=== PATIENT | male | born 1960 | race Caucasian/White ===

== ENCOUNTER 2020-08-29 14:11 | Observation (INO) | payer BC ==
[~2020-08-29] VITALS: Ht 182.9 cm; Wt 127.0 kg
[2020-08-29 14:17] VITALS: BP 166/73
[2020-08-29 14:30] LABS: ABSOLUTE BASOPHILS 0.1 thou/uL (0.0-0.2); ABSOLUTE EOSINOPHILS 0.1 thou/uL (0.0-0.7); ABSOLUTE LYMPHOCYTES 2.4 thou/uL (0.8-5.3); ABSOLUTE MONOCYTES 0.6 thou/uL (0.0-1.2); ABSOLUTE NEUTROPHILS 3.6 thou/uL (1.6-8.1); BASOPHILS 1.3 %; EOSINOPHILS 2.1 %; HEMATOCRIT 46.7 % (42.0-52.0); HEMOGLOBIN 15.8 gm/dL (14.0-18.0); LYMPHOCYTES 35.4 %; MCHC 33.8 g/dL (28.0-37.0); MCV 91.6 fL (80.0-100.0); MONOCYTES 8.5 %; MPV 8.5 fl. (7.2-11.1); NUCLEATED RBCS 0 /100WBC; PLATELET COUNT* 186 thou/uL (150-400); POLYS 52.7 %; WBC 6.8 thou/uL (4.0-11.0)
[2020-08-29 14:41] LABS: CALCIUM 9.3 mg/dL (8.5-10.1); CREATININE 1.5 mg/dL (0.6-1.3); POTASSIUM 3.5 mmol/L (3.5-5.1)
[2020-08-29 14:52] LABS: ALBUMIN 3.7 g/dL (3.4-5.0); MAGNESIUM 1.7 mg/dL (1.8-2.4); TOTAL BILIRUBIN 0.7 mg/dL (<0.1-1.0); TOTAL PROTEIN 7.9 g/dL (6.4-8.2)
--- NOTE | 2020-08-29 17:14 | EKG ---
[place] [address] ELECTROCARDIOGRAM REPORT Name: ANT MARRERO Room: [place] [address] [facility]#: [id number] Admission: 08/29/20 Attend Phys: Jeff Moreno, Discharge: Date of : 56 Date of Service: 08/29/20 1418 Report #: [id number] THIS REPORT FOR: //name// [facility] ED Test Date: 2020-08-29 Test Time: 14:18:16 Pat Name: ANT MARRERO Department: Room: [facility] Gender: M Performing Arts Technicians: BISI : 1960 Requested By: Edwardo Vasquez Order Number: [id number] MD: Jose Gomes Measurements Intervals [place] Rate: 82 P: 56 CA: 168 QRS: -58 QRSD: 101 T: 48 QT: 367 QTc: 429 Interpretive Statements Sinus rhythm Possible old inferior infarct Anterior infarct, old No previous ECG available for comparison Electronically Signed On 08-29-2020 17:14:48 CDT by Jose Gomes [email or web address] <ELECTRONICALLY SIGNED> By: Ivon Gomes MD, [facility] 08/29/20 1714 1418 1418 F. Jose Gomes MD, [facility] /EPI
[2020-08-29] MEDS ORDERED: VITAMIN D3 COM1 EACH PO (17:39)
[2020-08-29] MEDS ORDERED: METFORMIN HCL500 M3 PO (17:39)
[2020-08-29] MEDS ORDERED: XANAX1 MG PO (17:39)
[2020-08-29] MEDS ORDERED: JARDIANCE10 MG PO (17:40)
[2020-08-29] MEDS ORDERED: LOPRESSOR50 MG PO (17:40)
[2020-08-29] MEDS ORDERED: ASA81BEC PO (17:40)
[2020-08-29] MEDS ORDERED: AMARYL4 MG PO (17:40)
[2020-08-29] MEDS ORDERED: LISINOPRIL-HCT1 EAC2 PO (17:41)
[2020-08-29] MEDS ORDERED: OMEPRAZOLE 20 M20 M1 PO (17:41)
[2020-08-29] MEDS ORDERED: LIPITOR 20 MG T20 M1 PO (17:41)
[2020-08-29 18:15] VITALS: BP 143/66
[2020-08-29 18:30] VITALS: BP 130/63
[2020-08-29 20:17] VITALS: BP 106/50
--- NOTE | 2020-08-29 20:22 | NUR ---
PT ARRIVED TO ROOM 224 AT 1815. PT IS ALERT, ORIENTED X 4 AND COOPERATIVE WITH STAFF. NO C/O OR INDICATION OF PAIN OR DISTRESS. PT ORIENTED TO ROOM AND USE OF CALL LIGHT. NEWS LIBRARY DIRECTOR TO COMPLETE ADMISSION PROCESS/CHARTING
[2020-08-30] VITALS: BP 106/50
[2020-08-30 04:00] VITALS: BP 137/66
[2020-08-30 05:07] LABS: GLYCOHEMOGLOBIN (HGB A1C) 7.8 % (4.8-5.6)
[2020-08-30 07:41] LABS: HEMATOCRIT 45.8 % (42.0-52.0); HEMOGLOBIN 15.5 gm/dL (14.0-18.0); MCH 31.1 pg (26.0-34.0); MCHC 33.8 g/dL (28.0-37.0); MCV 91.8 fL (80.0-100.0); MPV 8.8 fl. (7.2-11.1); RBC 4.99 mil/uL (4.50-6.00); RDW-CV 14.1 % (10.5-14.5); WBC 6.4 thou/uL (4.0-11.0)
[2020-08-30 08:00] VITALS: BP 118/59
[2020-08-30] MEDS ORDERED: OMEPRAZOLE40 MG PO (09:02)
[2020-08-30] MEDS ORDERED: NITROGLYCERIN0.4 MG SUBLING (09:02)
[2020-08-30 09:42] LABS: CHOLESTEROL 156 mg/dL (<200); HDL CHOLESTEROL 32 mg/dL (>40); LDL CHOLESTEROL 88 mg/dL (<100); TC:HDL 4.9 Ratio (Not establshd); TRIGLYCERIDE 181 mg/dL (<150); VLDL 36 mg/dL (<40)
[2020-08-30 09:45] LABS: SERUM ASSESSMENT Clear
--- NOTE | 2020-08-30 09:57 | NUR ---
CM SPOKE TO THE PT TO DISCUSS HIS HOME SITUATION, DISCHARGE PLANNING, AND TO INFORM OF THE ROLE OF CM. PT A&O, INDEPENDENT WITH ADL'S, ACTIVE AND WORKS. PT INFORMS THAT HE RESIDES IN [place] WITH SPOUSE, AND IS IN THE AREA FOR WORK. PT USES 0 DME. PT HAS 0 HX OF HH OR SNF. CM WILL REMAIN AVAILABLE TO ASSIST WITH D/C PLANNING NEEDED.
--- NOTE | 2020-08-30 15:14 | EKG ---
[place] [address] ELECTROCARDIOGRAM REPORT Name: ANT MARRERO Room: [address]#: [id number] Admission: 08/29/20 Attend Phys: Jeff Moreno, Discharge: Date of : 56 Date of Service: 08/30/20822 Report #: [id number] THIS REPORT FOR: //name// [facility] Test Date: 2020-08-30 Test Time: 08:23:10 Pat Name: ANT MARRERO Department: Room: [address] Gender: M Job Interviewer: GERALDO : 1960 Requested By: Ivon Gomes Order Number: [id number] Reading MD: Richie Ariza Measurements Intervals [place] Rate: 65 P: 56 CA: 173 QRS: -46 QRSD: 102 T: 10 QT: 407 QTc: 424 Interpretive Statements Sinus rhythm Abnormal R-wave progression, late transition Inferior infarct, old Compared to ECG 08/29/2020 14:18:16 No significant changes Electronically Signed On 08-30-2020 15:14:06 CDT by Richie Ariza [email or web address] <ELECTRONICALLY SIGNED> By: Richie Ariza MD, FAC 08/30/20 1514 2 2 Richie Ariza MD, [facility] /EPI
[2020-08-30 16:00] VITALS: BP 126/67
--- NOTE | 2020-08-30 17:24 | CARDNUC ---
[place] [address] CARDIAC NUCLEAR IMAGING REPORT Name: ELIDAANT Kelby Room: [address]R.#: [id number] Admission: 08/29/20 Attend Phys: Jeff Moreno, Discharge: Date of : 56 Date of Service: 08/30/20 1724 Report #: [id number] THIS REPORT FOR: cc: Physician not on staff Physician not on staff Teodoro Rice MD [facility] ~ APPROVED REPORT Imaging Protocol: Stress Tc-99mm Only Study performed: 08/30/2020 07:16:00 Indication: Chest pain Patient Location: In-Patient Room #: 224 Stress Tech: Rosie Sierra Stress Nurse: Lidia Hayward RN NM Tech:NUBIA Bird Ht: 6 ft 0 in Wt: 280 lbs BSA: 2.46 m2 BMI: 37.97 Medical History Medical History: CAD s/p MD, CAD s/p stent, Diabetes, HTN, Hyperlipidemia Medications: atorvastatin, lisinopril, asa 325 ntg Allergies: hydrocodone Cardiac Risk Factors: Age, Diabetes (insulin), FHX of CAD, HTN, Hyperlipidemia Previous Cardiac Procedures: PCI, Myocardial infarction Exercise History: Physically active Exercise Stress At peak stress, the patient was injected intravenously with 28.8mCi of Tc-99m Sestamibi. Time of stress injection: 1045 Date: 08/30/2020 Administration Route: IV Administration Site: Left AC Gated Stress SPECT was performed 30 minutes after stress injection. The images were gated to evaluate regional wall motion and calculate left ventricular ejection fraction. Prone imaging was performed. [place] [address] CARDIAC NUCLEAR IMAGING REPORT Name: ANT MARRERO Room: [address]#: [id number] Admission: 08/29/20 Attend Phys: Jeff Moreno, Discharge: Date of : 56 Date of Service: 08/30/20 1724 Report #: [id number] Stress Test: Exercise stress testing was performed using a Baudilio protocol. HR Max Heart Rate (APMHR): 158 bpm Resting HR: 90 bpm Target HR (85% APMHR): 134 bpm Max HR Achieved: 160 bpm % of APMHR: 101 Recovery HR: 115 bpm BP Resting BP: 134/78 mmHg Max BP: 230/67 mmHg Recovery BP: 151/78 mmHg ECG Resting ECG: Sinus Rhythm Stress ECG: Sinus Bradycardia ST Change: None Arrhythmia: None Recovery ECG: Sinus Rhythm Recovery ST Change: None Recovery Arrhythmia: None Clinical Reason for Termination: Dyspnea, Fatigue Exercise duration: 6 min 30 sec Exercise capacity: 7.80 METs Overall Exercise Capacity for Age: Reduced Functional Aerobic Impairment 90% The patient tolerated standard Baudilio protocol exercise without significant cardiac symptoms. Stress ECG Conclusion The baseline twelve-lead EKG shows sinus rhythm without acute ST segment abnormality. EKGs obtained during and post exercise show sinus rhythm and sinus tachycardia with no significant ST segment or T wave abnormality. There were no significant stress-induced arrhythmias. Study Quality Study: Good Artifact: Mild Diaphragmatic artifact Study Data Post stress, the left ventricular ejection was 67%.. [place] [address] CARDIAC NUCLEAR IMAGING REPORT Name: ELIDA,ANT Kelby Room: [address]#: [id number] Admission: 08/29/20 Attend Phys: Jeff Moreno, Discharge: Date of : 56 Date of Service: 08/30/20 1724 Report #: [id number] Perfusion Perfusion images obtained post exercise stress show photopenia in the inferior wall that resolves completely on post-rest prone imaging. No other defects were identified. Wall Motion Global LV systolic function is preserved. There is slight hypokinesis of the inferior wall. Nuclear Conclusion ECG Findings: negative for ischemia Clinical Findings: negative for ischemia Nuclear Findings: negative for ischemia Exercise Capacity: Fair Left Ventricular Function: Preserved Perfusion images show no defect to suggest infarct or ischemia. Left ventricular systolic function is preserved on gated studies. This is not a high risk study. <Conclusion> The baseline twelve-lead EKG shows sinus rhythm without acute ST segment abnormality. EKGs obtained during and post exercise show sinus rhythm and sinus tachycardia with no significant ST segment or T wave abnormality. There were no significant stress-induced arrhythmias. <ELECTRONICALLY SIGNED> By: Teodoro Rice MD, FACC 08/30/201723 23 23 Teodoro Rice MD, FACC /INF
[2020-08-30 18:17] VITALS: BP 126/67
--- NOTE | 2020-08-30 19:54 | NUR ---
AT 1830 PT SALINE LOCK AND QUANTITY SURVEYOR DISCONTINUED. REVIEWED DISMISSAL INSTRUCTIONS,PRESCRIPTIONS TO BE FILLED AND NEED FOR HIM TO CONTACT HIS PRIMARY CARE PROVIDER AND UNSCRAMBLER TO SCHEDULE FOLLOW UP APPOINTMENTS. PT VERBALIZES UNDERSTANDING. PT TO MAIN ENTRANCE AT 1845. PT SON TO TRANSPORT HIM HOME. PT STABLE AT TIME OF DISMISSAL
--- NOTE | 2020-09-03 08:02 | CON ---
[address] [address] CONSULTATION Name: ANT MARRERO Room: [address] Fahad Yuan#: [id number] Admission: 08/29/20 Attend Phys: Jeff Moreno MD Discharge: 08/30/20 Date of : 56 Report #: [id number] THIS REPORT FOR: //name// cc: Physician not on staff Physician not on staff ~ CARDIOLOGY CONSULTATION HISTORY OF PRESENT ILLNESS: I was asked by the hospitalist and the ER doctor, Dr. Vasquez to see this 60-year-old white male in Cardiology consultation for evaluation and treatment of chest pain. This man has known history of coronary artery disease. He had an FL 17 years ago. Apparently, it was a left anterior coronary event. He had a stent in his left anterior coronary at that time. In 2019 approximately 15 months ago, he had 2 stents, one of which was in the LAD within the previous LAD stent and one was in another vessel, he does not remember. That was also apparently for an acute coronary syndrome. He has multiple coronary risk factors including non-insulin dependent diabetes mellitus, hypercholesterolemia, essential hypertension, family history of coronary artery disease, history of smoking, and he has obesity. When he came in this admission, he actually was hypoxemic, the exact etiology of his hypoxemia is not known. He began having chest pain 2 days ago. His chest pain is not like his previous FL or his previous coronary syndrome, those were both more classical, the FL was an elephant standing on his chest and the other acute coronary syndrome was pressure in his neck and upper shoulders, but also in his head oddly enough. This pain is substernal and in the epigastric area, although in the lower chest. It is sharp like a knife, it is a 6 on a scale of 10. He has had 6 or 8 episodes today. It lasts only a second. The initial one was after breakfast, he had several episodes and then he had subsequent ones after lunch. There is no radiation of the pain, no associated symptoms. He has not had any further pain since he came to the ER this afternoon. His initial troponin was negative at 0.06. His NT-proBNP was 84. His LFTs were normal and particular his alkaline phosphatase was normal. White count was normal as was his hemoglobin and hematocrit. Electrolytes were normal. His EKG was not completely normal. It shows sinus rhythm, heart rate was 82, there is left axis deviation, the axis was -58. The computer read an old inferior infarct; however, I disagree with that, there is a clearcut R-wave in 2 and a clearcut R-wave in 3. There is not a R-wave in aVF; however, a localized inferior infarct cannot be excluded. There is also an old anterior infarct; however, with loss of R-wave in V2, V3, V4, V5, and V6. There may be a left anterior fascicular block here. There likely is a left anterior fascicular block. HOME MEDICINES: Include metformin 1000 mg b.i.d., aspirin 81 mg b.i.d., Jardiance 10 mg daily, metoprolol tartrate 25 mg b.i.d. that is Lopressor, omeprazole 20 mg daily, atorvastatin 20 mg daily, lisinopril HCT 20/25 mg daily and alprazolam 1 mg daily. PAST MEDICAL HISTORY: Essentially as described above. [facility] [address] [place] [address] CONSULTATION Name: ANT MARRERO [address] [id number] Admission: 08/29/20 Attend Phys: Jeff Moreno MD Discharge: 08/30/20 Date of : 56 Report #: [id number] REVIEW OF SYSTEMS: Also essentially as described above. Please see our review of system form for details and negatives in review of systems. There were approximately negatives in review of systems. SOCIAL HISTORY: The patient does not smoke. He drinks 2-3 drinks per week. He does not use illegal drugs. FAMILY HISTORY: Positive for coronary artery disease, especially on his mother's side. Father's side is positive for cancer. PHYSICAL EXAMINATION: GENERAL: He presents as well-developed, well-nourished, obese white male in no acute distress. VITAL SIGNS: His pulse was 80 and regular, blood pressure was 135/85, respirations 16 and regular. He was clinically afebrile. HEENT: His head was atraumatic. Eyes clear. NECK: Supple. There is no jugular venous distention or hepatojugular reflux. Thyroid is not enlarged. There is no adenopathy. SKIN: Warm and dry. Mucous membranes are moist. LUNGS: Clear to auscultation and percussion. HEART: Revealed normal first and second heart sound. There is soft S4. There is no S3. There are no murmurs, rubs, thrills, heaves or gallops. PMI is nondisplaced. ABDOMEN: Soft, flat and nontender. No palpable masses. No organomegaly. EXTREMITIES: Reveal no cyanosis, clubbing or edema. NEUROLOGIC: The patient mentated normally, talked normally, moved all extremities normally. IMPRESSION: 1. Chest pain that is somewhat atypical for coronary pain, but given his past history is suspicious. 2. Coronary artery disease. 3. Status post myocardial infarction. 4. Status post 3 coronary stents. 5. Edw-msyuxat-ijidtpeci diabetes mellitus. 6. Hypercholesterolemia. 7. Essential hypertension. 8. Family history of coronary artery disease. 9. Hypoxemia. 10. History of smoking. 11. Obesity. RECOMMENDATION: I would start with a stress test and an echo on this gentleman. That will be done tomorrow. Further rule him out with more troponins and more EKGs. He probably will [place] [address] CONSULTATION Name: ANT MARRERO Room: [address]#: [id number] Admission: 08/29/20 Attend Phys: Jeff Moreno MD Discharge: 08/30/20 Date of : 56 Report #: [id number] Thank you very much for asking me to see the patient, it there are any questions, please feel free to contact me. <ELECTRONICALLY SIGNED> By: Ivon Gomes MD, FACC 09/03/20 0802 [id number]. Jose Gomes MD, FACC /nt
== END 2020-08-30 20:00 | disposition home or self-care (01) ==
LOC: M.ERS 14:11 → M.2W 15:27 → M.TBA-ER 15:27 → M.2W 18:18
PROVIDERS: Emergency Medicine Emergency Medical Services; ADMIT Internal Medicine; ATTEND Internal Medicine
DX: R07.89 Other chest pain (principal); E66.9 Obesity, unspecified; I10 Essential (primary) hypertension; E87.6 Hypokalemia; E83.42 Hypomagnesemia; E11.65 Type 2 diabetes mellitus with hyperglycemia; I25.10 Atherosclerotic heart disease of native coronary artery without angina pectoris; E78.00 Pure hypercholesterolemia, unspecified; R09.02 Hypoxemia; Z79.82 Long term (current) use of aspirin; Z79.899 Other long term (current) drug therapy; Z87.891 Personal history of nicotine dependence

== ENCOUNTER 2020-09-17 12:35 | Emergency (ER) | payer BC ==
[~2020-09-17] VITALS: Ht 182.9 cm; Wt 125.7 kg
[~2020-09-17 12:35] MED LIST: AMARYL4 MG PO; ASA81BEC PO; JARDIANCE10 MG PO; LIPITOR 20 MG T20 M1 PO; LISINOPRIL-HCT1 EAC2 PO; LOPRESSOR50 MG PO; METFORMIN HCL500 M3 PO; NITROGLYCERIN0.4 MG SUBLING; OMEPRAZOLE 20 M20 M1 PO; OMEPRAZOLE40 MG PO; VITAMIN D3 COM1 EACH PO; XANAX1 MG PO
[2020-09-17] MEDS ORDERED: VENTOLIN HFA 1818 GM INH (13:45)
[2020-09-17] MEDS ORDERED: ZPAK PO (13:45)
[2020-09-17] MEDS ORDERED: PREDNISONE 20 M20 MG PO (13:45)
[2020-09-17 13:58] VITALS: BP 126/62
== END 2020-09-17 13:58 | disposition home or self-care (01) ==
LOC: M.ERS 12:35
DX: U07.1 COVID-19 (principal); I10 Essential (primary) hypertension; E78.5 Hyperlipidemia, unspecified; E11.9 Type 2 diabetes mellitus without complications; I25.10 Atherosclerotic heart disease of native coronary artery without angina pectoris; Z88.5 Allergy status to narcotic agent; Z95.5 Presence of coronary angioplasty implant and graft